=== PATIENT | female | born 1940 | race Caucasian/White ===

== ENCOUNTER 2016-06-08 09:02 | Day surgery (SDC) | payer MEDICARE ==
[~2016-06-08 09:02] MED LIST: FENTANYL 250 MCG/5 ML AMP IV PRN; LACTATED RINGERS 1,000 ML IV SCH; LIDOCAINE Viscous 2% 15 ML UDCUP PO PRN; MIDAZOLAM HCL 5 MG/5 ML VIAL IV PRN
[2016-06-08] MEDS ORDERED: IV START KIT ONE (09:27)
[2016-06-08] MEDS ORDERED: PROPOFOL 20 ML IV ONE (11:32)
--- NOTE | 2016-06-11 14:04 | SURGPATH ---
[facility] [address] [place] [id number] Patient Name: TED MILLER MR#: [id number] : 1940 Gender: F Specimen #: [id number] Collected: 06/08/2016 Received: 06/10/2016 Reported: 06/11/2016 Submitting Phys: JULIO HIGUERA Copy To Phys: [facility] EV[facility] FLANAGAN Clinical History / Pre-Operative Diagnosis: SURVEILLANCE; RECTAL BLEEDING; FAMILY HISTORY OF COLON CA Specimen Source / Surgical Procedure Performed: #1-PROXIMAL ASCENDING COLON POLYP; #2-SPLENIC FLEXURE COLON POLYP; #3-SIGMOID POLYP AT 20 CM HIGH PRIORITY DIAGNOSIS. REQUIRES CLINICAL ATTENTION Interpretation: 1. PROXIMAL ASCENDING COLON POLYP: - TUBULAR ADENOMA. 2. SPLENIC FLEXURE POLYP: - TUBULAR ADENOMA. 3. SIGMOID COLON POLYP AT 20 CM: - INVASIVE ADENOCARCINOMA ARISING WITHIN AN ADENOMATOUS POLYP. - STAGE: pT1 - SEE CASE SUMMARY. Colon polypectomy case summary: TUMOR SITE: Sigmoid colon SPECIMEN INTEGRITY: Intact POLYP SIZE: Greatest dimension: 0.5 cm POLYP CONFIGURATION: Sessile TYPE OF POLYP: Tubular adenoma SIZE OF CARCINOMA: Greatest dimension: 0.3 cm HISTOLOGIC TYPE: Adenocarcinoma HISTOLOGIC GRADE: Low grade (well-differentiated to moderately differentiated) MICROSCOPIC TUMOR EXTENSION: Submucosa (at least pT1) DEEP MARGIN: Uninvolved by invasive carcinoma, 1 mm MUCOSAL MARGIN: Uninvolved by invasive carcinoma LYMPH-VASCULAR INVASION: Not identified ADDITIONAL PATHOLOGIC FINDINGS: See microscopic description Comment: Part 3 of this case has been reviewed at the daily pathology conference where there was agreement with the diagnosis of invasive adenocarcinoma arising in an adenomatous polyp. Electronically Signed Out Rachel Angel M.D. Gross Description: #1 The specimen is received in a formalin filled container labeled with the patient's name and "proximal ascending colon polyp". A single ely biopsy is 0.5 cm. Totally embedded in cassette #1. #2 The specimen is received in a formalin filled container labeled with the patient's name and "splenic flexure colon polyp". Three ely biopsies are 0.4-0.5 cm. Totally embedded in cassette #2. #3 The specimen is received in a formalin filled container labeled with the patient's name and "sigmoid polyp at 20 cm". Two ely biopsies are 0.5 x 0.4 x 0.2 cm and 0.5 x 0.5 x 0.3 cm. Each is bisected. Totally embedded in cassette #3. Thaddeus Forbes. Microscopic Description: 1. Sections of the proximal ascending colon polyp show adenomatous mucosal changes without evidence of high-grade dysplasia or invasive carcinoma. 2. Sections of the splenic flexure polyp show adenomatous mucosal changes without evidence of high-grade dysplasia or invasive carcinoma. 3. Sections of the sigmoid colon polyp at 20 cm show an adenomatous polyp with areas of high grade dysplasia. In the center of the polyp, some of the glands invade into the submucosa where there is a mild stromal reaction. The cauterized base of the polyp is uninvolved. The mucosal edges of the polyp are also uninvolved. 1: 69177 2: 82092 3: 69947 D12.2 D12.3 C18.7
--- NOTE | 2016-06-16 08:25 | OP ---
Yuliana MILLER [id number] : 03/14/1973 DATE OF ADDENDUM: June 16, 2016 ADDENDUM: PLAN: This 75-year-old female patient within the practice of Dr. Dee Hernadez underwent colonoscopy on June 08, 2016 for a family history of colon cancer. Polyps in the ascending colon, splenic flexure and sigmoid colon at 20 cm were found and removed. The polyp at 20 cm demonstrated an invasive adenocarcinoma arising with an adenomatous polyp but then cauterized base contained no cancer cells. The staging was pT1. The patient has been contacted and informed and given a recommendation for flexible sigmoidoscopy to visualize the cauterized base to ensure no residual polyp or cancer tissue is present. She agrees. This will be scheduled for her and medical follow up will be by Dr. Dee Hernadez. Job [id number] Cc: Dee Hernadez D.O.
== END 2016-06-08 11:55 | disposition home or self-care (01) ==
LOC: SDC 09:02
PROVIDERS: ATTEND Internal Medicine Gastroenterology
PROC: 0DBN8ZZ Excision of Sigmoid Colon, Via Natural or Artificial Opening Endoscopic (ICD-10-PCS; principal; 2016-06-08)
PROC: 0DBK8ZZ Excision of Ascending Colon, Via Natural or Artificial Opening Endoscopic (ICD-10-PCS; 2016-06-08)
DX: Z12.11 Encounter for screening for malignant neoplasm of colon (principal); D12.2 Benign neoplasm of ascending colon; D12.5 Benign neoplasm of sigmoid colon; K57.90 Diverticulosis of intestine, part unspecified, without perforation or abscess without bleeding; Z87.891 Personal history of nicotine dependence; E03.9 Hypothyroidism, unspecified; I10 Essential (primary) hypertension; I50.9 Heart failure, unspecified
CPT/HCPCS: 45385; J7120

== ENCOUNTER 2016-06-23 07:49 | Day surgery (SDC) | payer MEDICARE ==
--- NOTE | 2016-06-25 17:44 | SURGPATH ---
[facility] [address] [place] [id number] Patient Name: TED MILLER MR#: [id number] : 1940 Gender: F Specimen #: [id number] Collected: 06/23/2016 Received: 06/24/2016 Reported: 06/25/2016 Submitting Phys: JULIO HIGUERA Copy To Phys: [facility] FLANAGAN Clinical History / Pre-Operative Diagnosis: HISTORY OF SIGMOID COLON POLYP WITH ADENOCARCINOMA Specimen Source / Surgical Procedure Performed: SIGMOID COLON POLYP AT 20 CM Interpretation: COLON, SIGMOID, 20 CM, BIOPSY: - TUBULAR ADENOMA. - NO EVIDENCE OF MALIGNANCY. Electronically Signed Out Prasanna Torrez M.D., Ph.D. Gross Description: The specimen is received in a formalin filled container labeled with the patient's name and "sigmoid colon polyp at 20 cm". A polypoid ely biopsy is 0.4 x 0.3 x 0.2 cm. Totally embedded in one cassette. Valeriy Escoto, P.A. Microscopic Description: Examination of multiple levels from the sigmoid colon biopsy at 20 cm shows a single fragment of colonic mucosa with adenomatous changes within glands and tubules. There is no evidence of malignancy. 1: 13287 D12.5
== END 2016-06-23 09:42 | disposition home or self-care (01) ==
LOC: SDC 07:49
PROVIDERS: ATTEND Internal Medicine Gastroenterology
PROC: 0DBN8ZX Excision of Sigmoid Colon, Via Natural or Artificial Opening Endoscopic, Diagnostic (ICD-10-PCS; principal; 2016-06-23)
DX: D12.5 Benign neoplasm of sigmoid colon (principal); Z85.038 Personal history of other malignant neoplasm of large intestine; Z86.010 Personal history of colon polyps; K57.30 Diverticulosis of large intestine without perforation or abscess without bleeding; I10 Essential (primary) hypertension; E03.9 Hypothyroidism, unspecified; I50.9 Heart failure, unspecified; I42.9 Cardiomyopathy, unspecified; Z88.5 Allergy status to narcotic agent; Z88.2 Allergy status to sulfonamides